=== PATIENT | male | born 1995 | race Caucasian/White ===

== ENCOUNTER 2020-04-27 08:33 | Emergency (ER) | payer BC, SELFPAY ==
--- NOTE | 2020-04-27 08:39 | ED.GENADULT ---
HPI - General Adult General Chief complaint: Wound/Laceration Stated complaint: bite on leg Time Seen by Provider: 04/27/20 08:39 Source: patient Mode of arrival: ambulatory Limitations: no limitations History of Present Illness HPI narrative: 24-year-old male [facility] complaints of possible bee sting to the right lower leg x2 days. Patient states that he felt a sting to his leg and did notice some bees around him and assumed he got stung by a bee. Patient states he has been cleaning the area with hydrogen peroxide, putting Neosporin on it as well as taking Benadryl for the symptoms. Patient states it continues to swell and now the swelling has gone down to his right foot. Denies any pain. Patient states he noticed there has been some weeping coming from the site. Denies any fevers, body aches or chills. Denies any chest pain or shortness of breath. Related Data Home Medications Medication Instructions Recorded Confirmed No Home Medications 04/27/20 04/27/20 Allergies Allergy/AdvReac Type Severity Reaction Status Date / Time ALCOHOL WIPES Allergy Mild RASH Uncoded 04/27/20 08:48 Review of Systems Review of Systems: Narrative: CONSTITUTIONAL: Denies fever, chills, or sweats. EYES: Denies visual changes, redness, or discharge. ENT: Denies rhinorrhea, congestion, sore throat, or otalgia. CARDIOVASCULAR: Denies chest pain, palpitations, or edema. RESPIRATORY: Denies cough or dyspnea. GASTROINTESTINAL: Denies abdominal pain, nausea, vomiting, or diarrhea. GENITOURINARY: Denies dysuria or hematuria. SKIN: Denies rash or itching. Positive bee stings to right lower extremity MUSCULOSKELETAL: Denies back pain, joint pain, or myalgia. NEUROLOGIC: Denies headache, numbness, or weakness. PSYCHIATRIC: Denies anxiety or depression. PMFSH Comments At the time of my signature I agree with nursing past medical history, surgical, social, and family history. There is no relevant family history pertinent to the presenting complaint. Exam Narrative: Exam Narrative: GENERAL: Well-appearing, well-nourished, and in no acute distress. HEAD: Normocephalic, atraumatic. EYES: PERRLA and EOMI. ENT: Nares clear, no rhinorrhea or epistaxis. Mucous membranes moist. NECK: Supple. No lymphadenopathy CHEST: Clear to auscultation. No respiratory distress. HEART: Regular rate and rhythm. No murmur heard. Normal peripheral pulses. ABDOMEN: Soft, nontender, nondistended, normal active bowel sounds. EXTREMITIES: Normal range of motion. No edema. SKIN: Warm, dry, no rash. Patient appears to have a small punctate wendie noted to the right lower extremity on the lateral side above the ankle. There is some pustules noted around it with a little bit of weeping. There is some tightness to the skin with swelling that progresses down to the right ankle and foot. No involvement of the toes. No warmth noted. No pain on palpation to the area. NEURO: No focal deficits. Alert and oriented x3. Course Vital Signs Vital signs: Vital Signs Temperature 37.3 C 04/27/20 08:42 Pulse Rate 71 04/27/20 08:42 Respiratory Rate 14 04/27/20 08:42 Blood Pressure 151/98 H 04/27/20 08:42 Pulse Oximetry 100 04/27/20 08:42 Temperature 37.3 C 04/27/20 08:42 Pulse Rate 71 04/27/20 08:42 Respiratory Rate 14 04/27/20 08:42 Blood Pressure 151/98 H 04/27/20 08:42 Pulse Oximetry 100 04/27/20 08:42 Vital signs reviewed. The patient has been informed that they may have pre-hypertension or Hypertension based on a BP reading in the department. I recommend that the patient call the primary care provider listed on their discharge instructions or a physician of their choice this week to arrange follow up for further evaluation of possible pre-hypertension or Hypertension Medical Decision Making Differential Diagnosis Differential Diagnosis: Differential diagnosis: Abscess, cellulitis, hidradenitis, laceration, puncture wo
[2020-04-27 08:42] VITALS: BP 151/98; PULSE 71; RESP 14; TEMP 37.3; O2SAT 100
== END 2020-04-27 08:59 | disposition home or self-care (01) ==
PROVIDERS: Emergency Provider Nurse Practitioner Family
DX: L03.115 Cellulitis of right lower limb (principal); T63.441A Toxic effect of venom of bees, accidental (unintentional), initial encounter; J45.909 Unspecified asthma, uncomplicated
CPT/HCPCS: 99213; G0463

== ENCOUNTER 2023-08-22 09:35 | Outpatient (CLI) | payer BC, SELFPAY ==
[2023-08-22 12:54] LABS: Basophils Percent Auto 0.5 % (0.2-1.2); Eosinophils Absolute Auto 0.2 K/mm3 (0-0.3); Eosinophils Percent Auto 3.2 % (0-4.4); Hematocrit 47.7 % (42.0-52.0); Immature Granulocyte Absolute 0.02 K/mm3 (0.00-0.031); Immature Granulocyte Percent A 0.3 % (0-0.5); Lymphocytes Absolute Auto 1.64 K/mm3 (0.9-3.2); Lymphocytes Percent Auto 24.9 % (18.3-44.2); Mean Corpuscular HGB Conc 31.4 g/dl (32-36); Mean Corpuscular Hemoglobin 25.7 pg (26-34); Mean Corpuscular Volume 81.8 fl (80-100); Mean Platelet Volume 10.1 fl (7.4-10.4); Monocytes Absolute Auto 0.7 K/mm3 (0.1-0.6); Monocytes Percent Auto 10.3 % (2.6-8.5); Neutrophils Percent Auto 60.8 % (45.5-73.1); Platelet Count Result 319 k/mm3 (150-375); Red Blood Count 5.83 M/mm3 (4.6-6.20); Red Cell Distribution Width 13.6 % (11.5-14.5); White Blood Count 6.6 K/mm3 (4.5-10.0)
[2023-08-22 13:21] LABS: Alanine Aminotransferase 68 U/L (6-50); Albumin Level 4.7 g/dL (3.5-5.1); Alkaline Phosphatase 81 U/L (38-126); Anion Gap 7 mmol/L (8-16); Aspartate Amino Transferase 50 U/L (17-59); Bilirubin,Total 0.9 mg/dL (0.2-1.3); Blood Urea Nitrogen 15 mg/dL (9-20); Calcium 10.6 mg/dL (8.4-10.2); Carbon Dioxide 25 mmol/L (22-30); Chloride 104 mmol/L (98-107); Cholesterol 152 mg/dL (0-200); Estimated Glomerular Filt Rate > 60; Glucose 84 mg/dL (65-110); HDL Direct 30 mg/dL; Potassium 4.2 mmol/L (3.4-5.0); Sodium 136 mmol/L (137-145); Triglycerides 81 mg/dL (<150)
[2023-08-22 13:34] LABS: LDL Cholesterol Direct 102 mg/dL
== END 2023-08-22 09:36 | disposition home or self-care (01) ==
LOC: ANHGOSHLAB 09:36
PROVIDERS: Visit Provider Nurse Practitioner
DX: Z13.220 Encounter for screening for lipoid disorders (principal); Z13.29 Encounter for screening for other suspected endocrine disorder
CPT/HCPCS: 36415; 80053; 80061; 85025

== ENCOUNTER 2023-08-31 08:41 | Outpatient (CLI) | payer BC, SELFPAY ==
--- NOTE | 2023-09-25 16:52 | WPDHOMESLEEP ---
Sleep Study - Home Unattended Date of Study: 08/31/23 Ordering Provider: Taylor Hansen NP Interpreting Provider: Pili Will, DO Home Sleep Study Type: Watch PAT Height: 1.91 m Weight: 123.831 kg Body Mass Index: 34.1 Neck Circumference (inches): 17.5 Byars: 4 Reason for Sleep Study Loud snoring, nocturnal gasping Sleep History The patient is a 28-year-old male with hypertension, GERD, asthma and seasonal allergies that had a sleep study ordered by his primary care for evaluation of sleep apnea. The patient occasionally awakens at night with heartburn, belching or cough. He constantly snores loudly enough that others complain. He occasionally has trouble sleeping when he has a cold. He occasionally wakes up gasping for air throughout the night. He frequently has breathing problems at night observed by himself or others. He rarely sweats excessively at night. He rarely has heart palpitations or irregular heartbeats during the night. He rarely falls asleep during the day and never falls asleep while driving. He denies sleep paralysis, cataplexy and hypnagogic / hypnopompic hallucinations. He denies having trouble at school or work due to sleepiness. He denies feeling afraid of going to sleep. He rarely has nightmares. He occasionally remembers his dreams. He rarely has thoughts racing through his mind. He rarely feels sad, depressed or anxious. He denies having muscular tension. He rarely notices parts of his body jerk. He rarely kicks during the night. He occasionally has crawling and aching feelings in his legs but rarely has leg pain during the night. He rarely grinds his teeth during sleep but never awakens with morning jaw pain. He is rarely bothered by pain during the day and rarely awakened by pain during the night. He occasionally wakes up feeling stiff in the morning. He denies waking up with sore or achy muscles. He denies waking up with pain in the neck, spine and other joints. He goes to bed at midnight on weekdays and at 1:00 a.m. on the weekends. It takes him 15 minutes to fall asleep. He wakes up 3-4 times throughout the night to change positions and is able fall back asleep within a few minutes. He typically gets 6-8 hours of sleep per night. He will stay in bed for 10 minutes after waking up in the morning. He currently lives with his and child. He denies consuming any caffeinated beverages within 2 hours of bedtime. He denies engaging in physical exercise before bedtime. He will read and watch television before falling asleep. He denies taking naps in the afternoon or the evening. He consumes 1-2 caffeinated beverages per day. He consumes 1-2 alcoholic beverages per week. He denies tobacco and recreational drug use. FOR[facility], [facility] Past Medical History Medical History Ankle fracture, left Asthma Surgical History Surgical History History of ankle surgery left ankle Family History Family History Father Asthma Hypertension Grandparent Asthma Social History Social History Smoking status: Never smoker Alcohol intake: current Alcohol use details: beer once every two weeks, liquor once a month Substance use type: does not use Lack of Transportation: No Lack of Food: Never True Current Housing: I Have Housing Concerned About Future Housing: No Difficulty Paying Gas/Electric Bills: No Difficulty Paying for Meds: No Currently Unemployed: No Education: Bachelor's Degree Difficulty w/ Childcare or Family Care: No Medications Home Medications Medication Instructions Recorded Confirmed Type No Home Medications 04/27/20 08/22/23 History Sleep Procedure The sleep study was completed using [employer] ad
[2023-09-25 16:58] VITALS: BMI 34.1
== END 2023-09-01 08:00 | disposition home or self-care (01) ==
LOC: ANHCSM 08:42
PROVIDERS: PCP Nurse Practitioner; Visit Provider Nurse Practitioner
DX: G47.33 Obstructive sleep apnea (adult) (pediatric) (principal); R40.0 Somnolence
CPT/HCPCS: 95800